=== PATIENT | female | born 1975 | race Caucasian/White ===

== ENCOUNTER 2018-05-22 07:30 | Observation (INO) ==
[2018-05-22] MEDS ORDERED: MORPHINE SULFATE 4 MG/1 ML IVP ONE (07:48)
[2018-05-22] MEDS ORDERED: ASPIRIN 81 MG (BABY) CHEWABLE TABLET PO ONE ×2 (07:48→07:50)
[2018-05-22] MEDS ORDERED: LORazepam 2 MG/1 ML VIAL IVP ONE (07:48)
[2018-05-22] MEDS ORDERED: Sodium Chloride 0.9% 1,000 ML PRIMARY IV ONE (07:48)
[2018-05-22] MEDS ORDERED: ONDANSETRON 4 MG/2 ML VIAL IVP ONE (07:48)
[2018-05-22] MEDS ORDERED: NITROGLYCERIN 0.4 MG SL TAB (BOTTLE OF 3) SL ONE (07:50)
--- NOTE | 2018-05-22 07:53 | EKG ---
[address] [address] Measurements Intervals [place] Rate: 88 P: 63 ID: [id number] QRS: 45 QRSD: 106 T: 32 QT: 382 QTc: 427 Interpretive Statements SINUS RHYTHM Compared to ECG 11/06/2017 02:01:12 Sinus tachycardia no longer present Electronically Signed On 05-22-18 13:53:38 MDT by Janes Lacey [id number]
--- NOTE | 2018-05-22 07:58 | PDOC ---
Chest Pain HPI - General Chief Complaint: Chest Pain Stated Complaint: chest pain Date Seen by Provider: 05/22/18 Time Seen by Provider: 07:47 Source: Patient Exam Limitations: POSITIVE: No limitations Treatment Prior to Arrival: REPORTS: None Nurse's Notes Reviewed & Considered: Yes - History of Present Illness Initial Comments: This is a well-developed, well-nourished, obese, 42-year-old female, complaining of chest pain and shortness of breath. Patient began to develop chest pain that she describes as crushing pressure like an elephant sitting on her chest with radiation to her left shoulder and arm as well as shortness of breath. Patient states she just can't seem to catch her breath. This awoke her this morning at approximately 0300 hrs. Patient is presently in the middle of packing and moving out of state and the responsibility for the household and the move around her with her [id number] working. She denies any headache, no runny nose, no sore throat, no nausea vomiting or diarrhea, no hematuria dysuria, no myalgias or arthralgias. Patient has a history of SVT, states that this pain is very similar but that her heart is not racing. Body Location Affected: REPORTS: Chest Timing: REPORTS: Abrupt Duration: 4-6 hours Severity: Severe Context: REPORTS: Sleep Quality: REPORTS: "Pain", Pressure Radiation: REPORTS: Jaw (L), Shoulder (L), Arm (L) Associated Symptoms: REPORTS: Shortness of Breath Modifying Factors: improves with: None Reported Similar Symptoms Previously: Yes Recently seen/treated/hospitalized: No Any Prior Injuries Related to Current Complaint?: No - Patient Home Medications Home Medications: Home Medications Meperidine HCl [Demerol] 100 mg ORAL PRN PRN tab 04/29/11 Methscopolamine [place] 5 mg PO QID tab 06/20/13 Amitriptyline HCl 4 tab PO QHS tab 03/19/16 Blood-Glucose Meter [Contour Next] 1 [facility] WEEKLY #1 box 04/29/16 Lancets [Lancets Ultra Thin] 1 [facility] QD #1 box 04/29/16 Epinephrine 0.3 mg IM ONCE #1 unit 09/15/16 metoprolol succinate ER 25 mg tablet,extended release 24 hr 25 mg PO DAILY #30 tab 06/28/17 nifedipine ER 30 mg tablet,extended release 24 hr 30 mg PO DAILY #90 tab 11/02 lisinopril 30 mg tablet 30 mg PO BID #60 tab 04/01/18 metoprolol succinate ER 100 mg tablet,extended release 24 hr 100 mg PO QDAY #30 tab 04/01/18 metformin ER 500 mg tablet,extended release 24 hr 1,000 mg PO QDAY #60 tab 05/02/18 - Patient Allergies Allergies/Adverse Reactions: Allergies Allergy/AdvReac Type Severity Reaction Status Date / Time codeine phosphate Allergy Intermediate .seizures Verified 05/22/18 07:32 [From Tylenol-Codeine] gluten [Gluten] AdvReac Unknown INTOLERANCE Verified 05/22/18 07:32 Past Medical History - heen HEENT History: Denies History Additional HEENT History: wears glasses for near sightedness Cardiovascular History: Hypertension, Arrhythmia Additional Cardiovasular History: PSVT X 1, SVT episodes Respiratory History: Denies History Gastrointestinal History: GERD, Gallbladder Disease, Other (please comment) Additional Gastrointestinal History: chronic pain Sphincter of Oddi Genitourinary History: Denies History Endocrine History: Denies History Additional Endocrine History: "TRYING TO AVOID TYPE II DIABETES" Musculoskeletal History: Arthritis, Carpal Tunnel, Other (please comment) Prosthesis or Implant: Yes (LEFT KNEE HARDWARE) Additional Musculoskeletal History: CHRONIC PAIN FROM SPhINCTER OF ODDI. CAUSES VARIOUS MUSCULOSKELETAL PAINS mainly in ribcage Neurological History: Other (please comment) Additional Neurological History: SEIZURE X 1 FROM DRUG REACTION AGE 13 Blood Disorders: Denies History Psychiatric History: Denies History History of Sexually Transmitted Diseases: No Female Reproductive History: Breast Lumps, Hysterectomy Obstetrical History: Delivery Cancer History: Denies History In Past Year Been Physically Harmed or Verbally Threatened: No History of MDRO: No History of Other Communicable Diseases: No (VARICELLA) Tobacco Use: Never Smoker Alcohol Use: None In the Past 12 Months, Have Used or Abuse Any Substance: None Previous Surgical History: Yes Type / Date of Surgery: LEFT KNEE REPLACEMENT, RIGHT LUMPECTOMY, X3, HYSTERECTOMY,CHOLECYSTECOMY, SPHINCTEROTOMY Anesthesia Reactions: No Malignant Hyperthermia: No Significant Family History: Heart disease, Diabetes, Renal disease ROS - Limitations ROS Limitations: No Limitations Constitution: REPORTS: Denies Symptoms Cardiovascular: REPORTS: Chest Pain Respiratory: REPORTS: Shortness Of Breath Neurological: REPORTS: Denies Neuro Symptoms Gastrointestinal: REPORTS: Denies GI Symptoms Endocrine: REPORTS: Denies Symptoms Musculoskeletal: REPORTS: Denies MS Symptoms Genitourinary: REPORTS: Denies Symptoms Eyes: REPORTS: Denies Symptoms ENT: REPORTS: Denies Symptoms Skin: REPORTS: Denies Skin Symptoms Lympathic: REPORTS: Denies Lympathic Symptoms Immunologic: POSITIVE: Denies Symptoms Psychiatric: POSITIVE: Denies Psych Symptoms Chest Pain PE - General Appearance General Appearance: REPORTS: Alert, Cooperative, No Evidence of Trauma, Mild Distress - HEENT HEENT: POSITIVE: Head Inspection Nml, Eyes Inspection Nml, Ears Inspection Nml, Nose Inspection Nml, Oral/Dental Inspect. Nml, Pharynx Inspect. Nml, PERRL, EOMI - Neck Neck: REPORTS: Normal Inspection - Respiratory Respiratory: REPORTS: No Respiratory Distress, Breath Sounds Normal, Chest Non- Tender - Cardiovascular Cardiovascular: REPORTS: Regular Rate and Rhythm, Heart Sounds Normal, Strong Pulses, No Murmur, No Gallop, No Friction Rub, No JVD Peripheral Pulses: Radial (R): 4+ - Abdomen Abdomen: Soft: (All Quadrants), Normal Bowel Sounds: (All Quadrants), Denies T enderness: (All Quadrants), No Splenomegaly: (All Quadrants), No Hepatomegaly: (All Quadrants), No Guarding: (All Quadrants), No Rebound: (All Quadrants), No Palpable Pulse: (All Quadrants), No Palpabale Mass: (All Quadrants), No Distention: (All Quadrants), No Rigidity: (All Quadrants) - Skin Skin: REPORTS: Intact, Normal For Race, Warm, Dry, No Rash - Extremities Extremity: Non-Tender: (All Extremities), Normal ROM: (All Extremities), Normal Inspection: (All Extremities), Edema / Swelling: (RLE), (LLE) (+2 edema in lower extremities) - Neurological / Psychological Neurological: POSITIVE: Affect Apporpriate, Oriented X3, Motor Normal, Sensation Normal Chest Pain Progress - Results Reviewed by me Xrays/CTs/US Reviewed by me: Yes Lab Results Reviewed by Me: Yes CBC and BMP: 05/22/18 07:40 05/22/18 07:40 Lab Results:: Laboratory Results 05/22/18 05/22/18 05/22/18 07:40 07:40 07:40 WBC 8.19 RBC 5.28 Hgb 14.7 Hct 45.2 MCV 85.6 MCH 27.8 MCHC 32.5 L RDW Std Deviation 47.6 RDW Coeff of Erik 15.2 H Plt Count 316 MPV 10.9 Immature Gran % (Auto) 0.1 Neut % (Auto) 62.4 Lymph % (Auto) 30.5 Mobile % (Auto) 4.9 L Eos % (Auto) 1.6 Baso % (Auto) 0.5 Immature Gran # (Auto) 0.01 Neut # (Auto) 5.11 Lymph # (Auto) 2.50 Mobile # (Auto) 0.40 Eos # (Auto) 0.13 Baso # (Auto) 0.04 WBC Morphology Comment Normal morphology Plt Morphology Comment Normal morphology RBC Morph Comment Normal morphology PT 9.9 INR 0.97 D-Dimer 0.42 VBG pH VBG pCO2 VBG HCO3 VBG Base Excess Sodium 141 Potassium 3.8 Chloride 110 Carbon Dioxide 23 Anion Gap 8 BUN 10 Creatinine 0.7 Estimated GFR > 60 BUN/Creatinine Ratio 14.28 Glucose 136 H Calculated Osmolality 292.0 Lactic Acid Calcium 9.6 Magnesium 2.2 Total Bilirubin 0.3 AST 27 ALT 14 Alkaline Phosphatase 78 CK-MB (CK-2) Troponin I Handheld C-Reactive Protein 0.7 NT-Pro-B Natriuret Pep 142 H Total Protein 7.8 Albumin 4.2 Globulin 3.6 Albumin/Globulin Ratio 1.10 L Lipase 74 TSH 05/22/18 05/22/18 05/22/18 07:40 07:40 07:40 WBC RBC Hgb Hct MCV MCH MCHC RDW Std Deviation RDW Coeff of Erik Plt Count MPV Immature Gran % (Auto) Neut % (Auto) Lymph % (Auto) Mobile % (Auto) Eos % (Auto) Baso % (Auto) Immature Gran # (Auto) Neut # (Auto) Lymph # (Auto) Mobile # (Auto) Eos # (Auto) Baso # (Auto) WBC Morphology Comment Plt Morphology Comment RBC Morph Comment PT INR D-Dimer VBG pH VBG pCO2 VBG HCO3 VBG Base Excess Sodium Potassium Chloride Carbon Dioxide Anion Gap BUN Creatinine Estimated GFR BUN/Creatinine Ratio Glucose Calculated Osmolality Lactic Acid 1.4 Calcium Magnesium Total Bilirubin AST ALT Alkaline Phosphatase CK-MB (CK-2) 1.14 Troponin I Handheld 0.000 C-Reactive Protein NT-Pro-B Natriuret Pep Total Protein Albumin Globulin Albumin/Globulin Ratio Lipase TSH 1.14 05/22/18 07:54 WBC RBC Hgb Hct MCV MCH MCHC RDW Std Deviation RDW Coeff of Erik Plt Count MPV Immature Gran % (Auto) Neut % (Auto) Lymph % (Auto) Mobile % (Auto) Eos % (Auto) Baso % (Auto) Immature Gran # (Auto) Neut # (Auto) Lymph # (Auto) Mobile # (Auto) Eos # (Auto) Baso # (Auto) WBC Morphology Comment Plt Morphology Comment RBC Morph Comment PT INR D-Dimer VBG pH 7.41 VBG pCO2 36 L VBG HCO3 23 VBG Base Excess -2 Sodium Potassium Chloride Carbon Dioxide Anion Gap BUN Creatinine Estimated GFR BUN/Creatinine Ratio Glucose Calculated Osmolality Lactic Acid Calcium Magnesium Total Bilirubin AST ALT Alkaline Phosphatase CK-MB (CK-2) Troponin I Handheld C-Reactive Protein NT-Pro-B Natriuret Pep Total Protein Albumin Globulin Albumin/Globulin Ratio Lipase TSH EKG Interpreted/Reviewed By Me:: Yes (sinus rhythm, 88 bpm, no ST changes.) EKG Interpretation:: POSITIVE: Normal Sinus Rhythm, Normal ST/T - Patient's Progress Pain Medication Addressed: POSITIVE: Yes Re-Examine Time: 08:30 Status: POSITIVE: Improved MDM / ED Course: Patient was evaluated, an IV started, blood drawn and sent to the lab for studies, EKG and chest x-ray were obtained. Findings: EKG, per my interpretation shows sinus rhythm with rate of 88 beats a minute no ST changes noted. CBC shows white count hemoglobin and hematocrit platelets are normal. PT/INR normal. VBG is within normal limits. CMP shows glucose 136 the remainder the panel is normal. D-dimer 0.4 to, troponin 0.00, CK-MB of 1.14. BNP is 142. Lipase is normal at 74. Magnesium is normal at 2.2. Lactic acid is 1.4. Chest x-ray, per my interpretation, shows cardiomegaly with no focal infiltrates. TSH is pending. Assessment: Chest pain with positive risk factors. Plan: Patient being admitted for rule out SC. Quality Measure Initiative: CP/AMI: POSITIVE: EKG Quality Measure Initiative: CAP: POSITIVE: CXR or CT - Consult Consult (If Yes, Name of Consulting MD & Time Called): Yes (Dr. Gallo) Consulting MD will see pt:: POSITIVE: [facility] Admit Counseled: POSITIVE: Patient, RE: Lab Results, RE: Radiology Results, RE: DX, RE: Need for F/U Patient Care Time - Estimated PCT Patient Care Time (In Minutes): 45 Vital Signs - Recent Vital Signs Vital Signs: Vital Signs (Last 8 hours) Temp Pulse Pulse Pulse Resp BP Pulse Ox 05/22/18 08:10 76 12 154/97 96 05/22/18 08:00 78 15 152/92 95 05/22/18 07:50 77 13 167/99 95 05/22/18 07:35 88 05/22/18 07:30 97.0 F 80 87 18 173/122 96 - VS Reviewed Vital Signs Reviewed: Yes Discharge Clinical Impression: Chest pain, Shortness of breath Discharge Disposition: Admit to Inpatient Condition: Fair Patient Instructions Given at Discharge: Chest Pain (ED) Follow Up With: Holden Armstrong [Primary Care Provider] - Date Decision to Admit to Inpatient: 05/22/18 Time Decision to Admit to Inpatient: 08:43
[2018-05-22 08:00] LABS: BASOPHILS # (AUTO) 0.04 10*3/UL; BASOPHILS % (AUTO) 0.5 % (0-1); EOSINOPHILS # (AUTO) 0.13 10*3/UL; EOSINOPHILS % (AUTO) 1.6 % (0-8); Hematocrit [HCT] 45.2 % (37.0-47.0); Hemoglobin [HGB] 14.7 g/dL (12.0-16.0); MEAN CORPUSCULAR HEMOGLOBIN 27.8 PG (27-31); MEAN CORPUSCULAR HGB CONC 32.5 g/dL (33-37); MEAN CORPUSCULAR VOLUME 85.6 FL (81-99); MEAN PLATELET VOLUME 10.9 FL (7.4-12.2); MONOCYTES % (AUTO) 4.9 % (5-15); NEUTROPHILS # (AUTO) 5.11 10*3/UL; NEUTROPHILS % (AUTO) 62.4 % (50-80); RED BLOOD COUNT 5.28 10^6/uL (4.20-5.40)
[2018-05-22] MEDS: NITROGLYCERIN 0.4 MG SL TAB (BOTTLE OF 3) SL ONE ×2 (08:00→08:06)
[2018-05-22 08:02] LABS: PLATELET MORPHOLOGY COMMENT NORMAL MORPHOLOGY (NORM); RBC MORPHOLOGY COMMENT NORMAL MORPHOLOGY (NORM); WBC MORPHOLOGY COMMENT NORMAL MORPHOLOGY (NORM)
[2018-05-22 08:07] LABS: VENOUS PH 7.41 (7.32-7.42)
[2018-05-22 08:09] LABS: BLOOD UREA NITROGEN 10 mg/dL (7-22); BUN/CREATININE RATIO 14.28 (6-20); LIPASE 74 IU/L (23-300); SERUM ALBUMIN 4.2 g/dL (3.5-4.8)
[2018-05-22] MEDS ORDERED: Belladon/PHENobarbital Elixir 10 ML, Lidocaine Viscous Liquid 2% 15 ML, Mag Hyd/Al Hyd/... PO ONE ×3 (08:23)
[2018-05-22] MEDS ORDERED: LIDOCAINE 2% VISCOUS(20 MG/1 ML) - 15 ML UD CUP PO ONE (08:37)
[2018-05-22] MEDS ORDERED: MAG HYDROX/AL HYDROX/SIMETH 30 ML SUSP PO ONE (08:37)
--- NOTE | 2018-05-22 09:10 | DI ---
PORTABLE AP UPRIGHT CXR: HISTORY: 42-year-old female with chest pain. COMPARISON: Portable CXR 01/09/2016. FINDINGS: The lungs remain grossly clear, allowing for portable technique and patient body habitus. Borderline cardiomegaly is grossly stable. No definite abnormal mediastinal widening. No obvious pneumothorax or effusion, allowing for technique. IMPRESSION: Grossly unremarkable and unchanged portable CXR.
[2018-05-22] MEDS ORDERED: NITROGLYCERIN 0.4 MG SL TAB (BOTTLE OF 3) SL PRN (09:33)
[2018-05-22] MEDS ORDERED: metFORMIN ER 500 MG TABLET PO SCH ×2 (09:33→21:00)
[2018-05-22] MEDS ORDERED: LIDOCAINE W/ SODIUM BICARB 0.5 ML SYR SUBD PRN (09:33)
[2018-05-22] MEDS ORDERED: LISINOPRIL 10 MG TABLET PO SCH (09:33)
[2018-05-22] MEDS ORDERED: CALCIUM CARBONATE 500 MG (TUMS) CHEWABLE TABLET PO PRN (09:33)
[2018-05-22 10:03] LABS: CHOL/HDL RATIO 4.89 RATIO (0-4.0)
[2018-05-22 10:21] LABS: URINE SAMPLE TYPE VOID; URINE SPECIFIC GRAVITY - MAN 1.016
[2018-05-22 10:22] LABS: AMPHETAMINE SCREEN NEGATIVE (NEG); CANNABINOID SCREEN,URINE NEGATIVE (NEG); COCAINE SCREEN NEGATIVE (NEG); METHADONE URINE SCREEN NEGATIVE (NEG); METHAMPHETAMINES SCREEN,URINE NEGATIVE (NEG); OPIATE SCREEN,URINE POSITIVE (NEG)
[2018-05-22] MEDS: METHSCOPOLAMINE BROMIDE 5 MG PO SCH ×4 (11:13→20:55)
--- NOTE | 2018-05-22 13:50 | PDOC ---
HPI - History of Present Illness Date of Service: 05/22/18 Time of Service: 11:30 Chief Complaint: Chest pain History of Present Illness: This very pleasant 42-year-old female with "prediabetes", morbid obesity, and a history of insomnia that she's been on amitriptyline for 12 years, who comes in stating that she's had chest pressures developed over the last week to week and a half. Gradually over the last 2 days he seemed to have been getting worse with radiation to the left shoulder and arm. Patient states that she's been sweating more frequently but no significant diaphoresis otherwise, no nausea or vomiting, but some shortness of breath with these chest pressures. She's never had anything like this before. Nothing exertional. Her gallbladder is been removed. She does not have significant complaints of heartburn. She states that she is very anxious at times, and she is under a lot of stress as her has recently moved to [place] and she is taking care of their 3 kids and trying to complete the move. She states she became very worried and anxious that her daughter would find her from heart problems or sudden heart attack so she came in for evaluation this morning after she woke up with her chest pressure with radiation to the left arm. She does not smoke. She does not have cholesterol problems. She does have hypertension and a positive family history for coronary artery disease. She states she has been lifting boxes a lot lately in the setting of the move. The patient states she also has SVT. She states she was getting symptoms of SVT about every year or even staggered more than that, but recently it's been about every 8 months. With her SVT history, she worried more with the onset of chest pressure. Past Medical History Medical History: 1. Morbid obesity. 2. SVT. 3. Diabetes. 4. Hypertension. 5. Anxiety disorder Surgical History: 1. Hysterectomy with one ovary removed. 2. Cholecystectomy. 3. breast lumpectomy Pertinent Family History: Significant for coronary artery disease Past Social History: Denies smoking tobacco or drinking alcohol. . Has 3 children. In the process of moving to [place]. Tobacco Use: Never Smoker In the Past 12 Months, Have Used or Abuse Any of the Following Substance: None Alcohol Use: None Medication / Allergies Home Medications: Home Medications Medication Instructions Recorded Confirmed Type Meperidine HCl [Demerol] 100 mg ORAL PRN PRN tab 04/29/11 05/22/18 History Methscopolamine [place] 5 mg PO QID tab 06/20/13 05/22/18 History Amitriptyline HCl 4 tab PO QHS tab 03/19/16 05/22/18 History Blood-Glucose Meter [Contour Next] 1 [facility] WEEKLY #1 box 04/29/16 05/22/18 Rx Lancets [Lancets Ultra Thin] 1 ea QD #1 box 04/29/16 05/22/18 Rx Epinephrine 0.3 mg IM ONCE #1 unit 09/15/16 05/22/18 Rx metoprolol succinate ER 25 mg 25 mg PO DAILY #30 tab 06/28/17 05/22/18 Rx tablet,extended release 24 hr nifedipine ER 30 mg 30 mg PO DAILY #90 tab 09/23/17 05/22/18 Rx tablet,extended release 24 hr lisinopril 30 mg tablet 30 mg PO BID #60 tab 04/01/18 05/22/18 Rx metoprolol succinate ER 100 mg 100 mg PO QDAY #30 tab 04/01/18 05/22/18 Rx tablet,extended release 24 hr metformin ER 500 mg 1,000 mg PO QDAY #60 tab 05/02/18 05/22/18 Rx tablet,extended release 24 hr Allergies/Adverse Reactions: Allergies Allergy/AdvReac Type Severity Reaction Status Date / Time codeine phosphate Allergy Intermediate .seizures Verified 05/22/18 07:32 [From Tylenol-Codeine] gluten [Gluten] AdvReac Unknown INTOLERANCE Verified 05/22/18 07:32 Review of Systems - Review of Systems All Systems: Reviewed & No Additional Complaints Except as Stated (I did a 12 point review systems and it was negative other than that discussed below and in the history of present illness.) - Genitourinary Genitourinary: REPORTS: Other (Reports urinary frequency at nighttime. States this is has been worse since she has been off of her elavil.) - Neurological Neurologic: REPORTS: Headache (Describes pain headaches and poor sleep, she has amitriptyline. She has been off that for the last 2 weeks.) - Psychiatric Psychiatric: REPORTS: Anxiety Exam - Vitals Vital Signs: Vital Signs Temperature 97 F Temperature Source Temporal Artery Scan Pulse Rate [Pulse Oximeter] 69 Pulse Rate [Telemetry] 79 Pulse Rate [Apical] 80 Pulse Rate 71 Respiratory Rate 20 Blood Pressure [Right Arm] 164/104 Blood Pressure [Left Arm] 167/94 Blood Pressure 161/90 Pulse Ox 98 Oxygen Delivery Method Room Air Height 5 ft 8 in Weight 320 lb - General General Appearance: No Acute Distress, Cooperative - Head Head Exam: Normal Inspection, Normocephalic, Atraumatic - Eye Eye Exam: POSITIVE: No Scleral Icterus - ENT ENT Exam: POSITIVE: Mucous Membranes Moist Additonal ENT Exam Details: poor dentition and several missing front teeth. - Neck Neck Exam: Normal Inspection, No Tenderness, No Lymphadenopathy, No Thyromegaly, JVP is not Raised - Respiratory Respiratory Exam: POSITIVE: Clear to Auscultation - Bilaterally, Breathing Non Labored, Normal to Percussion and Palpation - Cardiovascular Cardiovascular Exam: POSITIVE: RRR, No Murmur, No Clicks, No Gallops, No Rubs, No JVD - GI/Abdominal GI/Abdominal Exam: POSITIVE: Normal Bowel Sounds, Non Tender, Non Distended, Soft - Rectal Rectal Exam: POSITIVE: Deferred - External Exam: POSITIVE: Deferred Exam: POSITIVE: Deferred - Extremities Extremities Exam: POSITIVE: No Clubbing Present, No Edema Present, No Cyanosis Present - Back Back Exam: POSITIVE: No CVA Tenderness - Neurological Neurological Exam: POSITIVE: Alert, Oriented x 3, No Facial Droop, Speech Intact / Clear, Moves All Extremities Equally - Psychiatric Psychiatric Exam: POSITIVE: Anxious Results - Labs CBC and BMP: 05/22/18 07:40 05/22/18 07:40 Additional Lab Results: Laboratory Results 05/22/18 05/22/18 05/22/18 07:40 07:40 07:40 WBC 8.19 RBC 5.28 Hgb 14.7 Hct 45.2 MCV 85.6 MCH 27.8 MCHC 32.5 L RDW Std Deviation 47.6 RDW Coeff of Erik 15.2 H Plt Count 316 MPV 10.9 Immature Gran % (Auto) 0.1 Neut % (Auto) 62.4 Lymph % (Auto) 30.5 Maries % (Auto) 4.9 L Eos % (Auto) 1.6 Baso % (Auto) 0.5 Immature Gran # (Auto) 0.01 Neut # (Auto) 5.11 Lymph # (Auto) 2.50 Maries # (Auto) 0.40 Eos # (Auto) 0.13 Baso # (Auto) 0.04 WBC Morphology Comment Normal morphology Plt Morphology Comment Normal morphology RBC Morph Comment Normal morphology PT 9.9 INR 0.97 D-Dimer 0.42 VBG pH VBG pCO2 VBG HCO3 VBG Base Excess Sodium 141 Potassium 3.8 Chloride 110 Carbon Dioxide 23 Anion Gap 8 BUN 10 Creatinine 0.7 Estimated GFR > 60 BUN/Creatinine Ratio 14.28 Glucose 136 H Calculated Osmolality 292.0 Lactic Acid Calcium 9.6 Magnesium 2.2 Total Bilirubin 0.3 AST 27 ALT 14 Alkaline Phosphatase 78 CK-MB (CK-2) Troponin I Handheld C-Reactive Protein 0.7 NT-Pro-B Natriuret Pep 142 H Total Protein 7.8 Albumin 4.2 Globulin 3.6 Albumin/Globulin Ratio 1.10 L Triglycerides Cholesterol LDL Cholesterol, Calc VLDL Cholesterol HDL Cholesterol Cholesterol/HDL Ratio Lipase 74 TSH Free T4 Ur Collection Type U Specif Grav (Refrac) Urine Opiates Screen Ur Buprenorphine Ur Oxycodone Screen Urine Methadone Screen Ur Propoxyphene Screen Barbiturate Screen U Tricyclic Antidepress Phencyclidine Screen Amphetamines Screen U Methamphetamines Scrn Benzodiazepines Screen Cocaine Screen U Marijuana (THC) Screen 05/22/18 05/22/18 05/22/18 07:40 07:40 07:40 WBC RBC Hgb Hct MCV MCH MCHC RDW Std Deviation RDW Coeff of Erik Plt Count MPV Immature Gran % (Auto) Neut % (Auto) Lymph % (Auto) Maries % (Auto) Eos % (Auto) Baso % (Auto) Immature Gran # (Auto) Neut # (Auto) Lymph # (Auto) Maries # (Auto) Eos # (Auto) Baso # (Auto) WBC Morphology Comment Plt Morphology Comment RBC Morph Comment PT INR D-Dimer VBG pH VBG pCO2 VBG HCO3 VBG Base Excess Sodium Potassium Chloride Carbon Dioxide Anion Gap BUN Creatinine Estimated GFR BUN/Creatinine Ratio Glucose Calculated Osmolality Lactic Acid 1.4 Calcium Magnesium Total Bilirubin AST ALT Alkaline Phosphatase CK-MB (CK-2) 1.14 Troponin I Handheld 0.000 C-Reactive Protein NT-Pro-B Natriuret Pep Total Protein Albumin Globulin Albumin/Globulin Ratio Triglycerides Cholesterol LDL Cholesterol, Calc VLDL Cholesterol HDL Cholesterol Cholesterol/HDL Ratio Lipase TSH 1.14 Free T4 Ur Collection Type U Specif Grav (Refrac) Urine Opiates Screen Ur Buprenorphine Ur Oxycodone Screen Urine Methadone Screen Ur Propoxyphene Screen Barbiturate Screen U Tricyclic Antidepress Phencyclidine Screen Amphetamines Screen U Methamphetamines Scrn Benzodiazepines Screen Cocaine Screen U Marijuana (THC) Screen 05/22/18 05/22/18 05/22/18 07:54 09:33 09:33 WBC RBC Hgb Hct MCV MCH MCHC RDW Std Deviation RDW Coeff of Erik Plt Count MPV Immature Gran % (Auto) Neut % (Auto) Lymph % (Auto) Maries % (Auto) Eos % (Auto) Baso % (Auto) Immature Gran # (Auto) Neut # (Auto) Lymph # (Auto) Maries # (Auto) Eos # (Auto) Baso # (Auto) WBC Morphology Comment Plt Morphology Comment RBC Morph Comment PT INR D-Dimer VBG pH 7.41 VBG pCO2 36 L VBG HCO3 23 VBG Base Excess -2 Sodium Potassium Chloride Carbon Dioxide Anion Gap BUN Creatinine Estimated GFR BUN/Creatinine Ratio Glucose Calculated Osmolality Lactic Acid Calcium Magnesium Total Bilirubin AST ALT Alkaline Phosphatase CK-MB (CK-2) Troponin I Handheld C-Reactive Protein NT-Pro-B Natriuret Pep Total Protein Albumin Globulin Albumin/Globulin Ratio Triglycerides 257 H Cholesterol 230 H LDL Cholesterol, Calc 131.600 VLDL Cholesterol 51 H HDL Cholesterol 47 Cholesterol/HDL Ratio 4.89 H Lipase TSH Free T4 1.06 Ur Collection Type U Specif Grav (Refrac) Urine Opiates Screen Ur Buprenorphine Ur Oxycodone Screen Urine Methadone Screen Ur Propoxyphene Screen Barbiturate Screen U Tricyclic Antidepress Phencyclidine Screen Amphetamines Screen U Methamphetamines Scrn Benzodiazepines Screen Cocaine Screen U Marijuana (THC) Screen 05/22/18 10:02 WBC RBC Hgb Hct MCV MCH MCHC RDW Std Deviation RDW Coeff of Erik Plt Count MPV Immature Gran % (Auto) Neut % (Auto) Lymph % (Auto) Maries % (Auto) Eos % (Auto) Baso % (Auto) Immature Gran # (Auto) Neut # (Auto) Lymph # (Auto) Maries # (Auto) Eos # (Auto) Baso # (Auto) WBC Morphology Comment Plt Morphology Comment RBC Morph Comment PT INR D-Dimer VBG pH VBG pCO2 VBG HCO3 VBG Base Excess Sodium Potassium Chloride Carbon Dioxide Anion Gap BUN Creatinine Estimated GFR BUN/Creatinine Ratio Glucose Calculated Osmolality Lactic Acid Calcium Magnesium Total Bilirubin AST ALT Alkaline Phosphatase CK-MB (CK-2) Troponin I Handheld C-Reactive Protein NT-Pro-B Natriuret Pep Total Protein Albumin Globulin Albumin/Globulin Ratio Triglycerides Cholesterol LDL Cholesterol, Calc VLDL Cholesterol HDL Cholesterol Cholesterol/HDL Ratio Lipase TSH Free T4 Ur Collection Type Void U Specif Grav (Refrac) 1.016 Urine Opiates Screen Positive H Ur Buprenorphine Negative Ur Oxycodone Screen Negative Urine Methadone Screen Negative Ur Propoxyphene Screen Negative Barbiturate Screen Negative U Tricyclic Antidepress Negative Phencyclidine Screen Negative Amphetamines Screen Negative U Methamphetamines Scrn Negative Benzodiazepines Screen Negative Cocaine Screen Negative U Marijuana (THC) Screen Negative - EKG Data -: EKG Interpreted by Me Rate: Normal EKG Shows Normal: Sinus Rhythm - Imaging Status: Image Reviewed by Me (chest X-ray appears negative on my view.) Assessment and Plan - Patient Problems (1) Chest pain Current Visit: Yes Status: Acute Code(s): R07.9 - Chest pain, unspecified (2) SVT (supraventricular tachycardia) Current Visit: No Status: Acute Code(s): I47.1 - Supraventricular tachycardia (3) Hypertension Current Visit: No Status: Chronic Code(s): I10 - Essential (primary) hypertension Qualifiers: Hypertension type: essential hypertension Qualified Code(s): I10 - Essential (primary) hypertension (4) Obesity Current Visit: No Status: Chronic Code(s): E66.9 - Obesity, unspecified Qualifiers: Obesity type: unspecified obesity type Obesity classification: adult class 3 (BMI >= 40) Serious obesity comorbidity presence: with serious comorbidity Body mass index: BMI 50.0-59.9 Qualified Code(s): E66.9 - Obesity, unspecified; Z68.43 - Body mass index (BMI) 50-59.9 , adult (5) Anxiety Current Visit: Yes Status: Acute Code(s): F41.9 - Anxiety disorder, unspecified - Assessment / Plan Additional Assessment/Plan Details: admit the patient check heart enzymes chemical stress test get cholesterol panel get thyroid studies NTG PRN for chest pain resume elavil
[2018-05-22] MEDS: LISINOPRIL 10 MG TABLET PO SCH (20:54)
[2018-05-22] MEDS: AMITRIPTYLINE 25 MG TABLET PO SCH (20:54)
[2018-05-22] MEDS ORDERED: Simvastatin Tab 40 MG TAB PO SCH (21:00)
[2018-05-23 02:07] LABS: BILIRUBIN,URINE NEGATIVE (NEG); CLARITY,URINE CLEAR (CLEAR); COLOR,URINE YELLOW (Y); GLUCOSE, URINE (UA) NEGATIVE (NEG); OCCULT BLOOD,URINE NEGATIVE (NEG); PROTEIN,URINE NEGATIVE (NEG); UROBILINOGEN,URINE 0.2 EU/dL (0.2)
[2018-05-23 02:08] LABS: URINE SAMPLE TYPE CLEAN CATCH URINE
[2018-05-23] MEDS: LISINOPRIL 10 MG TABLET PO SCH (11:05)
[2018-05-23] MEDS: METHSCOPOLAMINE BROMIDE 5 MG PO SCH ×3 (11:05→17:10)
--- NOTE | 2018-05-23 11:11 | STRESSTEST ---
[facility] Interpretive Statements This is a 42 YO with hypertension, family history of CAD, high cholesterol, "pre-DM", not smoking, who presented with chest pressures, atypical. Ruled out for [place]. With obesity, not a candidate for treadmill stress test, did Lexiscan. resting EKG is NSR. Had chest pressure with stress portion of stress test. No abnormal EKG tracings during study. Plan: stress images today, compile images, radiology to review. [email or web address]
[2018-05-23 11:22] VITALS: O2SAT 94
[2018-05-23 16:09] VITALS: BP 151/109; RESP 18; TEMP 97
--- NOTE | 2018-05-23 16:13 | DI ---
2 DAY LEXISCAN STRESS & REST MYOCARDIAL PERFUSION SCANS, 05/22/2018 9:33 AM : Clinical History: Chest pain Previous Exam: None at this facility. The patient was stressed by Dr. Milo Mckeon The standard Lexiscan protocol was used. Please see the Doctor's report. At the designated time, 40.8 mCi of 99Tc-sestimibi was injected IV. Stress gated tomograms were acquired within one hour of the i njection. For the resting scans, 37.6 mCi was injected IV and resting gated tomograms were acquired in similar fashion. Stress scans were performed on May 22; the resting scans were performed on May 23. Quantitative and qualitative analyses were performed. Quantitative analysis was performed with the [place] [facility] [id number] protocols. Very low dose limited CT scans of the chest are o btained through the level of the heart for attenuation correction of the gated stress and rest cardia c SPECT data. Non-attenuated and attenuated scans were processed for review, and the attenuated scans were used for final interpretation of this study. Review of the raw data images and quality assurance supervisor final files indicate that these series of examinations ar e of excellent quality. Stress and rest left ventricular chamber sizes are normal. Stress and rest LV EF are 74 % and 76 %, respectively. There is a fixed anterior apical defect worse on rest than on stress. Defects involving the lateral base most likely represent artifact. There is normal wall motion and normal ejection fraction. Transient ischemic dilatation ratio is 1.02, with a normal range up to 1.22 for patients stressed wi th the Pranav protocol and up to 1.33 for patients stressed with the Lexiscan protocol. The very low dose CT scans through the level of the heart show no coronary artery calcifications. The re is no adenopathy or evidence of lung nodules. Reading: No evidence of ischemia. Normal wall motion and normal ejection fraction.
[2018-05-23 18:54] LABS: HEMOGLOBIN A1C 5.45 % (4.2-6.0)
[2018-05-23] MEDS: AMITRIPTYLINE 25 MG TABLET PO SCH (19:04)
--- NOTE | 2018-05-23 19:38 | DCSUMMARY ---
Hospitalization Summary Admit Date: 05/22/2018 Discharge Date: 05/23/18 Primary Diagnosis:: chest pain, suspect anxiety related, amitriptyline withd Hospital Course: This is a very pleasant 42 YO female with HTN, obesity on metformin, and sphincter of oddi dysfunction and SVT. Presented with chest pain and ruled out for [place]. Was stressed with Lexiscan protocol and test was negative, but interestingly had lateral base reversibility that was felt to be artifact. The patient has been off amitriptyline for almost 2 weeks and has had worsening anxieyt off the medication with chest pressures. I think this is the cause of the pains, but given the possible artifact, will arrange a cardiology appointment to discuss whether any further studies should be done. This appointment will also serve to discuss SVT to help work towards and ablation. We found no evidence for diabetes and stopped metformin. We did find high cholesterol and started a statin. Patient had no complaints of chest pain, shortness of breath, or nausea or vomiting at time of discharge. patient is discharged home in stable condition Home Medications Medication Instructions Recorded Confirmed Type Methscopolamine [place] 5 mg PO QID tab 06/20/13 05/22/18 History Epinephrine 0.3 mg IM ONCE #1 unit 09/15/16 05/22/18 Rx metoprolol succinate ER 25 mg 25 mg PO DAILY #30 tab 06/28/17 05/22/18 Rx tablet,extended release 24 hr nifedipine ER 30 mg 30 mg PO DAILY #90 tab 09/23/17 05/22/18 Rx tablet,extended release 24 hr lisinopril 30 mg tablet 30 mg PO BID #60 tab 04/01/18 05/22/18 Rx metoprolol succinate ER 100 mg 100 mg PO QDAY #30 tab 04/01/18 05/22/18 Rx tablet,extended release 24 hr Amitriptyline HCl 100 mg PO BEDTIME #90 tab 05/23/18 Rx Simvastatin [Zocor] 40 mg PO BEDTIME #90 tab 05/23/18 Rx patient will follow up with primary physician and cardiology which we will help arrange regular diet. Exam - Vitals Vital Signs: Vital Signs Temperature 97 F Temperature Source Temporal Artery Scan Pulse Rate [Pulse Oximeter] 96 Pulse Rate [Telemetry] 79 Pulse Rate [Apical] 80 Pulse Rate 80 Respiratory Rate 18 Blood Pressure [Left Radial 151/109 Artery] Blood Pressure [Right Arm] 141/74 Blood Pressure [Left Arm] 152/102 Blood Pressure 161/90 Pulse Ox 94 Oxygen Delivery Method Room Air Height 5 ft 8 in Weight 320 lb - General General Appearance: No Acute Distress, Cooperative - Eye Eye Exam: POSITIVE: No Scleral Icterus - ENT ENT Exam: POSITIVE: Mucous Membranes Moist - Neck Neck Exam: JVP is not Raised - Respiratory Respiratory Exam: POSITIVE: Clear to Auscultation - Bilaterally, Breathing Non Labored - Cardiovascular Cardiovascular Exam: POSITIVE: RRR, No Murmur, No Clicks, No Gallops, No Rubs, No JVD - GI/Abdominal GI/Abdominal Exam: POSITIVE: Normal Bowel Sounds, Non Tender, Non Distended, Soft - Extremities Extremities Exam: POSITIVE: No Clubbing Present, No Edema Present, No Cyanosis Present - Neurological Neurological Exam: POSITIVE: Alert, Oriented x 3, Normal Gait, No Facial Droop, Speech Intact / Clear, Moves All Extremities Equally - Psychiatric Psychiatric Exam: POSITIVE: Anxious Data Peritnent Studies: 05/22/18 05/22/18 05/22/18 07:40 07:40 07:40 WBC 8.19 Hgb 14.7 Hct 45.2 Plt Count 316 Sodium 141 Potassium 3.8 Chloride 110 Carbon Dioxide 23 Anion Gap 8 BUN 10 Glucose 136 H Hemoglobin A1c Calculated Osmolality 292.0 Lactic Acid Calcium 9.6 Magnesium 2.2 Total Bilirubin 0.3 AST 27 ALT 14 Alkaline Phosphatase 78 CK-MB (CK-2) 1.14 Troponin I Handheld Troponin I C-Reactive Protein 0.7 NT-Pro-B Natriuret Pep 142 H Total Protein 7.8 Albumin 4.2 Globulin 3.6 Triglycerides Cholesterol LDL Cholesterol, Calc VLDL Cholesterol HDL Cholesterol Cholesterol/HDL Ratio Lipase 74 TSH 1.14 Free T4 05/22/18 05/22/18 05/22/18 07:40 07:40 07:40 WBC Hgb Hct Plt Count Sodium Potassium Chloride Carbon Dioxide Anion Gap BUN Glucose Hemoglobin A1c 5.45 Calculated Osmolality Lactic Acid 1.4 Calcium Magnesium Total Bilirubin AST ALT Alkaline Phosphatase CK-MB (CK-2) Troponin I Handheld 0.000 Troponin I C-Reactive Protein NT-Pro-B Natriuret Pep Total Protein Albumin Globulin Triglycerides Cholesterol LDL Cholesterol, Calc VLDL Cholesterol HDL Cholesterol Cholesterol/HDL Ratio Lipase TSH Free T4 05/22/18 05/22/18 05/22/18 09:33 09:33 14:40 WBC Hgb Hct Plt Count Sodium Potassium Chloride Carbon Dioxide Anion Gap BUN Glucose Hemoglobin A1c Calculated Osmolality Lactic Acid Calcium Magnesium Total Bilirubin AST ALT Alkaline Phosphatase CK-MB (CK-2) Troponin I Handheld Troponin I < 0.012 C-Reactive Protein NT-Pro-B Natriuret Pep Total Protein Albumin Globulin Triglycerides 257 H Cholesterol 230 H LDL Cholesterol, Calc 131.600 VLDL Cholesterol 51 H HDL Cholesterol 47 Cholesterol/HDL Ratio 4.89 H Lipase TSH Free T4 1.06 05/22/18 20:05 WBC Hgb Hct Plt Count Sodium Potassium Chloride Carbon Dioxide Anion Gap BUN Glucose Hemoglobin A1c Calculated Osmolality Lactic Acid Calcium Magnesium Total Bilirubin AST ALT Alkaline Phosphatase CK-MB (CK-2) Troponin I Handheld Troponin I < 0.012 C-Reactive Protein NT-Pro-B Natriuret Pep Total Protein Albumin Globulin Triglycerides Cholesterol LDL Cholesterol, Calc VLDL Cholesterol HDL Cholesterol Cholesterol/HDL Ratio Lipase TSH Free T4 Procedures: [address] [facility] [address] [facility] [place] [address] PH: DD: [phone] FAX: [phone] ~DIAGNOSTIC IMAGING REPORT~ Patient: Maria Fagan : 1975 Sex: F Age: 42 Exam Name: NM Myocardial Multi-Spect Exam Date: 05/22/18 Report # : [id number] CPT Code: 74527 EMR/MR #: [id number] Ordering: YAMILET HAY Admiting: YAMILET HAY DO Primary: Holden Armstrong MD. Attending: YAMILET HAY, DO Signed 2 DAY LEXISCAN STRESS & REST MYOCARDIAL PERFUSION SCANS, 05/22/2018 9:33 AM : Clinical History: Chest pain Previous Exam: None at this facility. The patient was stressed by Dr. Yamilet Hay The standard Lexiscan protocol was used. Please see the Doctor's report. At the designated time, 40.8 mCi of 99Tc-sestimibi was injected IV. Stress gated tomograms were acquired within one hour of the injection. For the resting scans, 37.6 mCi was injected IV and resting gated tomograms were acquired in similar fashion. Stress scans were performed on May 22; the resting scans were performed on May. Quantitative and qualitative analyses were performed. Quantitative analysis was performed with the [facility] [id number] protocols. Very low dose limited CT scans of the chest are obtained through the level of the heart for attenuation correction of the gated stress and rest cardiac SPECT data. Non-attenuated and attenuated scans were processed for review, and the attenuated scans were used for final interpretation of this study. Review of the raw data images and quality control inspector heading files indicate that these series of examinations are of excellent quality. Stress and rest left ventricular chamber sizes are normal. Stress and rest LVEF are 74 % and 76 %, respectively. There is a fixed anterior apical defect worse on rest than on stress. Defects involving the lateral base most likely represent artifact. There is normal wall motion and normal ejection fraction. Transient ischemic dilatation ratio is 1.02, with a normal range up to 1.22 for patients stressed with the Pranav protocol and up to 1.33 for patients stressed with the Lexiscan protocol. The very low dose CT scans through the level of the heart show no coronary artery calcifications. There is no adenopathy or evidence of lung nodules. Reading: No evidence of ischemia. Normal wall motion and normal ejection fraction. Dictated By: 05/23/18 1545 MICHELL DEJESUS MD. Signed By: 05/23/18 1613 MICHELL DEJESUS MD. Patient Problems - Patient Problem List (1) Chest pain Status: Acute Code(s): R07.9 - Chest pain, unspecified Category: Medical (2) SVT (supraventricular tachycardia) Status: Acute Code(s): I47.1 - Supraventricular tachycardia Category: Medical (3) Hypertension Status: Chronic Code(s): I10 - Essential (primary) hypertension Qualifiers: Hypertension type: essential hypertension Qualified Code(s): I10 - Essential (primary) hypertension Category: Medical (4) Obesity Status: Chronic Code(s): E66.9 - Obesity, unspecified Qualifiers: Obesity type: unspecified obesity type Obesity classification: adult class 3 (BMI >= 40) Serious obesity comorbidity presence: with serious comorbidity Body mass index: BMI 50.0-59.9 Qualified Code(s): E66.01 - Morbid (severe) obesity due to excess calories; Z68.43 - Body mass index (BMI) 50-59.9, adult Category: Medical (5) Anxiety Status: Acute Code(s): F41.9 - Anxiety disorder, unspecified Category: Medical
== END 2018-05-23 19:17 | disposition home or self-care (01) ==
LOC: ER 07:30 → MED/SURG 07:30
PROVIDERS: ADMIT Family Medicine; ATTEND Family Medicine